=== PATIENT | male | born 1965 | race Hispanic/Latino ===

== ENCOUNTER 2019-12-08 10:19 | Inpatient (IN) | payer BC ==
[~2019-12-08] VITALS: Ht 167.6 cm; Wt 90.3 kg
[2019-12-08] MEDS ORDERED: SODIUM CHLORIDE 0.9% 1000ML 1,000 ML IV STA (10:33)
--- NOTE | 2019-12-08 10:40 | Emergency Department Note ---
History of Present Illnes History of Present Illness Chief Complaint: General Medicine Complaints History of Present Illness This is a 54 year old male . 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 Any updates have been documented here. Past Medical History Recent Fever: No Clinical Suspicion of Infectio: No New/Unexplained Change in Ment: No Other Medical History: HEART MURMUR Other Surgery: heart valve Social History Any Illegal Drug Use: No TB Exposure/Symptoms: No Physically hurt or threatened: No Review of Systems ROS Narrative Patient is a 54 year old male that presents with feeling of difficulty swallowing, has a sensation of something stuck in his chest. Went to [facility] ER yesterday and was referred to GI. Review of Systems Constitutional: Reports no symptoms EENTM: Reports no symptoms Cardiovascular: Reports no symptoms Respiratory: Reports no symptoms Gastrointestinal: Reports no symptoms Genitourinary: Reports no symptoms Musculoskeletal: Reports no symptoms Integumentary: Reports no symptoms Neurological: Reports no symptoms Psychological: Reports no symptoms Endocrine: Reports no symptoms Hematological/Lymphatic: Reports no symptoms Physical Exam Related Data Allergies: Coded Allergies: aspirin (Unverified Allergy, Unknown, 12/08/19) ibuprofen (Unverified Allergy, Unknown, 12/08/19) Triage Vital Signs Vital Signs Date Time Temp Pulse Resp B/P (MAP) Pulse Ox O2 Delivery O2 Flow Rate FiO2 12/08/19 10:22 99.0 85 18 122/84 100 Room Air Vital signs reviewed: Yes Physical Exam CONSTITUTIONAL Constitutional: Present well-developed, Present well-nourished HENT HENT: Present normocephalic, Present atraumatic, Present oropharynx clear/moist, Present nose normal HENT L/R: Present left ext ear normal, Present right ext ear normal EYES Eyes: Reports PERRL, Reports conjunctivae normal NECK Neck: Present ROM normal PULMONARY Pulmonary: Present effort normal, Present breath sounds normal CARDIOVASCULAR Cardiovascular: Present regular rhythm, Present heart sounds normal, Present capillary refill normal, Present normal rate GASTROINTESTINAL Abdominal: Present soft, Present nontender, Present bowel sounds normal GENITOURINARY Genitourinary: Present exam deferred SKIN Skin: Present warm, Present dry MUSCULOSKELETAL Musculoskeletal: Present ROM normal NEUROLOGICAL Neurological: Present alert, Present oriented x 3, Present no gross motor or sensory deficits PSYCHOLOGICAL Psychological: Present mood/affect normal, Present judgement normal Results Laboratory Lab results reviewed: Yes Imaging Imaging results reviewed: Yes Diagnostics Tests Diagnostic test(s) reviewed: Yes Procedures 12 Lead ECG Interpretation ECG Interpretation : ECG: ECG 1 Date: Dec 08, 2019 Time: 10:39 Prior ECG tracings: reviewed Rhythm: sinus rhythm Rate: normal BPM: 79 Assessment & Plan Medical Decision Making MDM Blood work, CXR, EKG Called Dr Arjun Dias who will take patient for EGD Reassessment Reassessment Patient in [facility], resting at this time. Consulted Dr Crowley and Dr Arjun Dias. Admiss ion orders placed Assessment & Plan Final Impression: (1) Esophageal foreign body (2) Dysphagia Depart Disposition: ADMITTED Last Vital Signs Date Time Temp Pulse Resp B/P (MAP) Pulse Ox O2 Delivery O2 Flow Rate FiO2 12/08/19 10:22 99.0 85 18 122/84 100 Room Air ASHLEY PENNINGTON Dec 08, 2019 10:36
[2019-12-08 10:50] LABS: EOSINOPHILS % 0.3 % (0.0-6.0); HEMATOCRIT 47.9 % (38.2-49.6); HEMOGLOBIN 15.6 g/dL (14.0-18.0); LYMPHOCYTES # (AUTO) 0.9 (1.0-3.2); LYMPHOCYTES % 28.2 % (18.0-39.1); MEAN CORPUSCULAR HEMOGLOBIN 27.3 pg (28-32); MEAN CORPUSCULAR HGB CONC 32.6 g/dL (31-35); MEAN CORPUSCULAR VOLUME 83.7 fL (81-99); MONOCYTES # (AUTO) 0.4 (0.2-0.8); NEUTROPHILS # (AUTO) 1.9 (2.1-6.9); NEUTROPHILS % 60.2 % (38.7-80.0); PLATELET COUNT 176 x10e3/uL (140-360); RED BLOOD COUNT 5.72 x10e6/uL (4.3-5.7); RED CELL DISTRIBUTION WIDTH 13.5 % (11.7-14.4)
[2019-12-08 11:10] LABS: ALANINE AMINOTRANSFERASE 27 IU/L (0-55); ALBUMIN 3.7 g/dL (3.5-5.0); ALBUMIN/GLOBULIN RATIO 1.2 (0.8-2.0); ALKALINE PHOSPHATASE 53 IU/L (40-150); ANION GAP 10.8 mmol/L (8-16); BLOOD UREA NITROGEN 12 mg/dL (7-26); BUN/CREATININE RATIO 16 (6-25); CARBON DIOXIDE 24 mmol/L (22-29); CHLORIDE 106 mmol/L (98-107); CREATINE KINASE 53 IU/L (30-200); CREATININE, SERUM 0.77 mg/dL (0.72-1.25); EST GLOMERULAR FILTRATION RATE > 60 ML/MIN (60-); GLUCOSE 114 mg/dL (74-118); MAGNESIUM 1.9 MG/DL (1.3-2.1); POTASSIUM 3.8 mmol/L (3.5-5.1); SODIUM 137 mmol/L (136-145)
[2019-12-08 11:14] LABS: INR 2.2; PROTHROMBIN TIME 25.9 seconds (11.9-14.5)
[2019-12-08 12:14] LABS: LIPASE 14 U/L (8-78)
[2019-12-08] MEDS ORDERED: MORPHINE SULFATE 2 MG/ML SYR 1ML IV PRN (12:50)
--- NOTE | 2019-12-08 12:54 | Diagnostic Imaging Report ---
EXAMINATION: CHEST SINGLE (PORTABLE) INDICATION: Chest pain COMPARISON: None FINDINGS: AP view TUBES and LINES: None. LUNGS: Lungs are well inflated. Lungs are clear. There is no evidence of pneumonia or pulmonary edema. PLEURA: No pleural effusion or pneumothorax. HEART AND MEDIASTINUM: The cardiomediastinal silhouette is at the upper limit of normal in size. BONES AND SOFT TISSUES: No acute osseous lesion. Mediastinal surgical changes are noted. UPPER ABDOMEN: No free air under the diaphragm. IMPRESSION: No acute thoracic radiographic abnormality. Signed by: Robin Heard MD on 12/08/2019 12:50 PM
[2019-12-08] MEDS ORDERED: ONDANSETRON HCL INJ 2MG/ML 2ML 2 MG/ML VIAL IV PRN (13:00)
--- NOTE | 2019-12-08 14:14 | NUR ---
COVID SWAB DONE AND SENT TO LAB
--- NOTE | 2019-12-08 16:15 | NUR ---
RECEIVED PATIENT FROM ER. PATIENT A/O X3, EVEN RESPIRATIONS ON RA. LUNG SOUNDS CLEAR. VS STABLE. TELEMETRY #2 SR. RIGHT FA 20 GAUGE IV WITH NS @ 125 CC/HR. SKIN INTACT. CALL LIGHT IN REACH WILL CONTINUE TO MONITOR PATIENT.
--- NOTE | 2019-12-08 16:40 | NUR ---
CONSULTS CALLED TO DR. BONILLA AND DR. RALPH SOTO.
[2019-12-08 16:49] VITALS: BP 136/88
[2019-12-08 16:58] VITALS: BP 136/88
[2019-12-08] MEDS ORDERED: FAMOTIDINE 20 MG/2 ML VIAL IV SCH (17:00)
[2019-12-08 17:01] VITALS: BP 136/88
[2019-12-08] MEDS: SODIUM CHLORIDE 0.9% 1000ML 1,000 ML IV SCH (18:25)
--- NOTE | 2019-12-08 19:25 | NUR ---
BEDSIDE SHIFT REPORT RECEIVED FROM DAY RN. PT IS ALERT AND ORIENTED X4. TELE ON. PT TAKING CLEAR LIQUIDS.PT REPORTS PAIN WHEN DRINK WATER. CONDITION STABLE.
[2019-12-08 20:00] VITALS: BP 123/74
[2019-12-08] MEDS ORDERED: PANTOPRAZOLE 40 MG 10ML VIAL IV STA (23:12)
[2019-12-08] MEDS: PANTOPRAZOL 40MG/SOD CHL 0.9% 50 ML IV SCH (23:59)
[2019-12-09] VITALS (9 sets, daily range): BP systolic 113–119; BP diastolic 61–84
[2019-12-09] MEDS: SODIUM CHLORIDE 0.9% 1000ML 1,000 ML IV SCH ×4 (01:10→18:33)
[2019-12-09 05:26] LABS: BASOPHILS % 0.3 % (0.0-1.0); EOSINOPHILS % 0.3 % (0.0-6.0); HEMATOCRIT 44.8 % (38.2-49.6); HEMOGLOBIN 14.5 g/dL (14.0-18.0); LYMPHOCYTES % 35.1 % (18.0-39.1); MEAN CORPUSCULAR HEMOGLOBIN 27.3 pg (28-32); MEAN CORPUSCULAR HGB CONC 32.4 g/dL (31-35); MEAN CORPUSCULAR VOLUME 84.2 fL (81-99); MONOCYTES # (AUTO) 0.5 (0.2-0.8); MONOCYTES % 15.6 % (4.4-11.3); NEUTROPHILS # (AUTO) 1.4 (2.1-6.9); PLATELET COUNT 152 x10e3/uL (140-360); RED BLOOD COUNT 5.32 x10e6/uL (4.3-5.7); RED CELL DISTRIBUTION WIDTH 13.5 % (11.7-14.4)
[2019-12-09] MEDS: PANTOPRAZOL 40MG/SOD CHL 0.9% 50 ML IV SCH ×5 (05:36→20:04)
[2019-12-09 05:41] LABS: INR 2.28; PROTHROMBIN TIME 26.6 seconds (11.9-14.5)
[2019-12-09 05:55] LABS: ALANINE AMINOTRANSFERASE 25 IU/L (0-55); ALBUMIN 3.3 g/dL (3.5-5.0); ALBUMIN/GLOBULIN RATIO 1.1 (0.8-2.0); ALKALINE PHOSPHATASE 49 IU/L (40-150); ANION GAP 11.4 mmol/L (8-16); BLOOD UREA NITROGEN 9 mg/dL (7-26); BUN/CREATININE RATIO 12 (6-25); CALCIUM 8.6 mg/dL (8.4-10.2); CARBON DIOXIDE 24 mmol/L (22-29); CHLORIDE 107 mmol/L (98-107); CREATININE, SERUM 0.74 mg/dL (0.72-1.25); EST GLOMERULAR FILTRATION RATE > 60 ML/MIN (60-); GLUCOSE 84 mg/dL (74-118); POTASSIUM 4.4 mmol/L (3.5-5.1); SODIUM 138 mmol/L (136-145)
--- NOTE | 2019-12-09 09:51 | History and Physical ---
REASON FOR ADMISSION: The patient is coming in here for dysphagia. HISTORY OF PRESENT ILLNESS: Mr. Arturo Valles with a history of aortic valve replacement, history of coronary artery disease, on warfarin and metoprolol, was in usual state of health until about one day prior to admission. The patient was working, did not feel hungry, but he tried to force himself to eat. Did have some upper respiratory symptoms of cough and congestion. The patient did not think much of it, but as he was trying to swallow food, the patient felt the obstruction in the mid esophageal area and the midsternal area, and the patient was admitted to the hospital for dysphagia and abdominal pain, and chest pain. PAST MEDICAL HISTORY: 1. History of aortic stenosis, status post aortic valve replacement, mechanical heart. 2. History of coronary artery disease and advanced stenting in one of the arteries, unknown artery. MEDICATIONS: He takes at home: 1. Metoprolol 50 mg once a day extended release. 2. Warfarin, dose unknown. FAMILY HISTORY: History of hepatitis and cancer of the digestive system in the father. Otherwise, noncontributory. SOCIAL HISTORY: No EtOH. No IV drug abuse. No history of smoking either. ALLERGIES: ALLERGIC TO ASPIRIN AND IBUPROFEN. SURGICAL HISTORY: As mentioned above, mechanical valve replacement, open-heart surgery. REVIEW OF SYSTEMS: Positive for chest pain. No nausea. Positive for dysphagia. No diarrhea. No constipation. No rectal bleeding. No hematochezia. No hematemesis. No history of any sudden weight loss noted either. No diplopia. No blurry vision. No history of neurological symptoms. PHYSICAL EXAMINATION: VITAL SIGNS: Temperature is 97.5, pulse of 80, respirations of 20, blood pressure is 118/68, pulse oximetry of 100%. HEENT: Normocephalic, atraumatic. Pupils are reactive. CVS: S1 and S2. Mechanical click present. LUNGS: Good air entry into all lung bases. ABDOMEN: Soft, nontender, nondistended. EXTREMITIES: No clubbing, no cyanosis and/or no edema. LABORATORY VALUES: White count is 3.19, hemoglobin of 15.6, hematocrit of 47.9. Chemistry shows sodium 137, potassium 3.8, BUN of 12, creatinine 0.77. ALT, AST, alkaline phosphatase normal. Lipase is 14. Coags; the patient's PT, INR 26.6 and 2.28. Serology; coronavirus is pending. IMAGING STUDIES: Chest x-ray shows no acute thoracic abnormalities. ASSESSMENT: 1. Mr. Arturo Valles with dysphagia of unknown origin. 2. Abdominal pain. 3. History of aortic valve replacement with Coumadin on board. 4. History of coronary artery disease. PLAN: Continue with telemetry monitoring. The patient is off the Coumadin. We will need to scope the patient. Dr. Kd Beverly is on board. Further recommendation per clinical course and also after EGD has been done. The patient can be discharged home depending on the findings of EGD. Further recommendation per clinical course. MD BRIAN Bennett/MODL /[id number]
--- NOTE | 2019-12-09 19:45 | NUR ---
RECEIVED REPORT FROM PREVIOUS NURSE. CALL LIGHT WITHIN REACH. PATIENT IN BED.
[2019-12-10] VITALS (8 sets, daily range): BP systolic 105–158; BP diastolic 60–86
--- NOTE | 2019-12-10 00:51 | NUR ---
CALLED AND TALKED TO DR. BONILLA ABOUT PATIENT COMPLAINING OF BACK PAIN. DR. BONILLA ORDERED MORPHINE 2 MG Q6H
[2019-12-10] MEDS ORDERED: MORPHINE SULFATE 2 MG/ML SYR 1ML IV PRN (00:55)
[2019-12-10] MEDS: SODIUM CHLORIDE 0.9% 1000ML 1,000 ML IV SCH ×3 (01:13→18:18)
[2019-12-10] MEDS: PANTOPRAZOL 40MG/SOD CHL 0.9% 50 ML IV SCH ×5 (02:25→20:52)
[2019-12-10 05:48] LABS: INR 2.19; PROTHROMBIN TIME 25.8 seconds (11.9-14.5)
--- NOTE | 2019-12-10 07:00 | NUR ---
BEDSIDE SHIFT REPORT RECEIVED FORM THE CLINICAL MICROBIOLOGIST RN. PT DENIES NEEDS AT THIS TIME.
--- NOTE | 2019-12-10 07:14 | NUR ---
GAVE BEDSIDE SHIFT REPORT TO ONCOMING NURSE. CALL LIGHT WITHIN REACH. PATIENT IN BED. HOURLY ROUNDING PERFORMED
--- NOTE | 2019-12-10 08:00 | NUR ---
PT COVID TEST POSITIVE. PT IS TRANSFERRING TO RM 185. TRANSFER REPORT GIVEN TO THE RN. DR. BONILLA NOTIFIED.
--- NOTE | 2019-12-10 09:00 | NUR ---
DR. VALENTIN NOTIFIED ABOUT NEW CONSULT AND DR. BELLO NOTIFIED ABOUT PT COVID TEST RESULT PER DR. BONILLA
--- NOTE | 2019-12-10 09:05 | NUR ---
PT TRANSFERRED TO 185 SAFELY. PT DENIED FURTHER NEEDS.
--- NOTE | 2019-12-10 09:15 | NUR ---
Pt received from [facility] at this time. Pt is aox4 and able to verbalize needs. Denies any pain at this time. Denies SOB. Breaths are even and unlabored on room air.
--- NOTE | 2019-12-10 16:32 | NUR ---
PAST MEDICAL HISTORY: 1. History of aortic stenosis, status post aortic valve replacement, mechanical heart. 2. History of coronary artery disease and advanced stenting in one of the arteries, unknown artery. MEDICATIONS: He takes at home: 1. Metoprolol 50 mg once a day extended release. 2. Warfarin, dose unknown. FAMILY HISTORY: History of hepatitis and cancer of the digestive system in the father. Otherwise, noncontributory. SOCIAL HISTORY: No EtOH. No IV drug abuse. No history of smoking either. ALLERGIES: ALLERGIC TO ASPIRIN AND IBUPROFEN. SURGICAL HISTORY: As mentioned above, mechanical valve replacement, open-heart surgery. REVIEW OF SYSTEMS: Positive for chest pain. No nausea. Positive for dysphagia. No diarrhea. No constipation. No rectal bleeding. No hematochezia. No hematemesis. No history of any sudden weight loss noted either. No diplopia. No blurry vision. No history of neurological symptoms. [id number]
--- NOTE | 2019-12-10 19:11 | Consultation ---
DATE OF CONSULTATION: REASON FOR CONSULTATION: COVID-19. HISTORY OF PRESENT ILLNESS: This patient is a 54-year-old who comes in with difficulty swallowing, dysphagia. The patient has history of aortic valve replacement, coronary artery disease. He was on Coumadin, metoprolol. The patient denies any fever, chills, shortness of breath, or cough, but he is having difficulty swallowing, came here to be admitted. His COVID-19 came back positive. PAST MEDICAL HISTORY: Aortic valve replacement, coronary artery disease. ALLERGIES: NKA. SOCIAL HISTORY: There is no smoking, drug abuse, or alcohol abuse. FAMILY HISTORY: Otherwise unremarkable. PHYSICAL EXAMINATION: GENERAL: He is currently alert, oriented. Does not seem to be in acute distress. VITAL SIGNS: Stable. Currently afebrile. HEENT: Not icteric. NECK: Supple. CHEST: Clear. HEART: S1, S2. ABDOMEN: Soft. Bowel sounds present. EXTREMITIES: No edema. SKIN: No rash. LABORATORY DATA: His white count is 3.19, hemoglobin of 15. His COVID-19 was positive. His sodium 137, potassium 3.8, creatinine 0.77. MEDICATIONS: The patient currently on pantoprazole and Zofran. IMPRESSION: 1. COVID-19. Asymptomatic. No new infiltrate. He will continue on droplet isolation. The patient is not infectious 10 days post diagnosis. He is telling me he never had symptoms. There were some positive people at work, but he never had any symptoms. 2. Leukopenia, reassess. 3. Difficulty swallowing. May need EGD. PLAN: From Infectious Disease point of view, the patient is clinically stable. I answered all his questions. We will follow. MD TAQUERIA Wasserman/MODL /[id number]
--- NOTE | 2019-12-10 19:28 | NUR ---
Patient received sitting up in bed. AAO x 4. Patient had no complaints of pain. Respirations even and non-labored. IVF infusing at 125 cc/hr and Protonix drip at 10 cc/hr. Safety measures in place. Patient instructed to call for assistance when needed. Call light within reach.
[2019-12-11] VITALS (8 sets, daily range): BP systolic 120–138; BP diastolic 70–92
[2019-12-11] MEDS: SODIUM CHLORIDE 0.9% 1000ML 1,000 ML IV SCH ×2 (02:11→12:05)
[2019-12-11] MEDS: PANTOPRAZOL 40MG/SOD CHL 0.9% 50 ML IV SCH ×4 (02:11→18:31)
--- NOTE | 2019-12-11 02:13 | NUR ---
Dr. Arjun Beverly here to see patient. New order received for EGD procedure and to keep patient NPO .
--- NOTE | 2019-12-11 03:16 | NUR ---
Patient informed of upcoming diagnostic procedure----EGD and "NPO" status. Patient verbalized understanding. Disclosure and Consent form voluntarily signed by patient.
[2019-12-11 05:08] LABS: INR 1.86; PROTHROMBIN TIME 22.6 seconds (11.9-14.5)
[2019-12-11 05:47] LABS: BASOPHILS % 0.3 % (0.0-1.0); EOSINOPHILS % 1.3 % (0.0-6.0); HEMATOCRIT 45.2 % (38.2-49.6); LYMPHOCYTES % 32.2 % (18.0-39.1); MEAN CORPUSCULAR HEMOGLOBIN 27.6 pg (28-32); MEAN CORPUSCULAR HGB CONC 33.2 g/dL (31-35); MEAN CORPUSCULAR VOLUME 83.2 fL (81-99); MONOCYTES # (AUTO) 0.3 (0.2-0.8); MONOCYTES % 10.4 % (4.4-11.3); NEUTROPHILS # (AUTO) 1.7 (2.1-6.9); NEUTROPHILS % 55.5 % (38.7-80.0); PLATELET COUNT 160 x10e3/uL (140-360); RED BLOOD COUNT 5.43 x10e6/uL (4.3-5.7); RED CELL DISTRIBUTION WIDTH 13.5 % (11.7-14.4)
[2019-12-11 06:30] LABS: ALANINE AMINOTRANSFERASE 27 IU/L (0-55); ALBUMIN 3.3 g/dL (3.5-5.0); ALBUMIN/GLOBULIN RATIO 1.1 (0.8-2.0); ALKALINE PHOSPHATASE 58 IU/L (40-150); ANION GAP 11.9 mmol/L (8-16); BLOOD UREA NITROGEN 7 mg/dL (7-26); BUN/CREATININE RATIO 11 (6-25); CALCIUM 8.7 mg/dL (8.4-10.2); CARBON DIOXIDE 22 mmol/L (22-29); CHLORIDE 109 mmol/L (98-107); CREATININE, SERUM 0.63 mg/dL (0.72-1.25); EST GLOMERULAR FILTRATION RATE > 60 ML/MIN (60-); GLUCOSE 76 mg/dL (74-118); MAGNESIUM 1.8 MG/DL (1.3-2.1); POTASSIUM 3.9 mmol/L (3.5-5.1); SODIUM 139 mmol/L (136-145)
--- NOTE | 2019-12-11 08:00 | NUR ---
Pt received in bed with eyes closed. Easily wakes with verbal stimuli. Pt is NPO at this time for planned procedure. Denies any pain at this time. Breaths even and unlabored on room air. Denies SOB.
--- NOTE | 2019-12-11 15:52 | NUR ---
Nutrition Screen Note RD Recommendation for Physician: -Recommend advancing diet when medically appropriate Plan of Care: RD following, monitoring for tolerance and adequacy Nutrition reason for involvement: diagnosis - dysphagia Primary Diagnose(s): dysphagia PMH: aortic stenosis, CAD Ht: 66 in Wt: 197 lb BMI: 31.8 kg/m2 IBW:[address] Assessment: (12/11/19) Chart reviewed. Labs and meds reviewed. Pt is a 54 year old male admitted with dysphagia. Pt is COVID-19+. Unable to enter room due to isolation precautions. Attempted to call pt over the phone, but he did not answer. Pt is currently NPO for an EGD per chart. Pt was previously on a liquid diet with 50-100% PO intake from 12/08-12/09. Will continue to monitor. Current Diet: NPO Malnutrition Evaluation (12/11/19) Unable to assess due to isolation precautions. Will re-evaluate at follow-up as appropriate. Diet Education Needs Assessment: Diet education not indicated at this time, pt is NPO Nutrition Care Level: low Signed: Amanda Wilson, RD, LD
--- NOTE | 2019-12-11 16:30 | NUR ---
Pt being transferred to OR at this time for scheduled procedure. Pt is aox4 and able to verbalize needs Denies any pain at this time. Breaths even and unlabored.
--- NOTE | 2019-12-11 18:00 | NUR ---
Pt received back from OR at 1730. Pt is axo4 and able to verbalize needs. Dr. Beverly has started pt on carafate. He would like for patient to stay overnight until he tolerates solid food prior to discharge. He will needs scripts for carafate when he discharges. Received orders from Dr. Aguirre to restart pt on coumadin 5mg tonight.
--- NOTE | 2019-12-11 18:30 | Progress Note ---
DATE: SUBJECTIVE: Mr. Valles is doing well. There are no new complaints. He is going to have an EGD today. There is no fever, no chills. REVIEW OF SYSTEMS: Otherwise unremarkable. PHYSICAL EXAMINATION: GENERAL: He is currently alert, oriented. VITAL SIGNS: Stable, afebrile. HEENT: He is not icteric. NECK: Supple. CHEST: Clear. HEART: S1, S2. No murmurs. ABDOMEN: Soft. IMPRESSION AND PLAN: 1. Difficulty with swallowing for esophagogastroduodenoscopy. 2. Coronavirus disease-19. The patient is asymptomatic. The patient was diagnosed with coronavirus disease-19 by PCR. Discussed with the patient to finish 10 days of home quarantine. After that, there is no need to repeat the PCR. The patient can be discharged home from Infectious Disease. Stable otherwise. MD TAQUERIA Wasserman/REAGAN /[id number]
[2019-12-11] MEDS: WARFARIN SOD 5 MG TAB PO SCH (18:31)
--- NOTE | 2019-12-11 18:35 | Operative Report ---
DATE OF PROCEDURE: 12/11/2019 SURGEON: Kd Beverly MD PROCEDURE: EGD with biopsies. INDICATIONS FOR EGD: Odynophagia. MEDICATIONS: The patient was done under MAC, please see anesthesiologist's note. PROCEDURE IN DETAIL: With the patient in the left lateral decubitus position, a flexible fiberoptic Olympus gastroscope was introduced into the esophagus under direct visualization without any difficulty. Approximately 5 mm ulcer was noted in the mid esophagus with heaped up margins without active bleeding or stigmata of recent hemorrhage. The scope was then advanced with ease into the stomach. Mucosa overlying the antrum and the body revealed some patchy erythema and [id number] edema, and biopsies were obtained and sent to stain for H. pylori. Pylorus was of normal contour and shape, was intubated with ease and the scope was advanced all the way to the second portion of the duodenum. The scope was then withdrawn slowly, mucosa overlying the proximal second portion and the duodenal bulb appeared to be within normal limits. The scope was then withdrawn back into the stomach and retroflexed, mucosa overlying the fundus and the cardia appeared to be within normal limits. The scope was then straightened out, it was subsequently withdrawn, and the patient tolerated the procedure well. IMPRESSION: 1. Esophageal ulcer, mid esophagus, approximately 5 mm in size with heaped up margins without active bleeding or stigmata of recent hemorrhage. 2. Gastritis, biopsied, biopsies sent to stain for Helicobacter pylori. PLAN: Follow up histology. Add Carafate 1 g p.o. before meals t.i.d. and at bedtime. Start GI soft diet. Kd Beverly MD [facility]/REAGAN /[id number] cc: Jonny Crowley MD
--- NOTE | 2019-12-11 19:28 | NUR ---
Patient received sitting up in bed. AAO x 4. No complaints of pain. No signs of respiratory distress. Fall precautions implemented. IVF infusing at 125 cc/hr and Protonix at 10 cc/hr. Patient instructed to call for assistance when needed. Call light within reach.
[2019-12-11] MEDS ORDERED: PROPOFOL IV EMULSION 10 MG/ML 20 ML VIAL ONE (21:10)
[2019-12-11] MEDS: SUCRALFATE 1 GM/10 ML SUSP PO SCH (21:31)
[2019-12-12] VITALS (10 sets, daily range): BP systolic 116–129; BP diastolic 64–82
[2019-12-12] MEDS: PANTOPRAZOL 40MG/SOD CHL 0.9% 50 ML IV SCH ×6 (01:04→22:29)
[2019-12-12] MEDS: SODIUM CHLORIDE 0.9% 1000ML 1,000 ML IV SCH ×4 (01:04→17:47)
[2019-12-12] MEDS: SUCRALFATE 1 GM/10 ML SUSP PO SCH ×4 (07:30→21:34)
[2019-12-12] MEDS: WARFARIN SOD 5 MG TAB PO SCH (16:24)
--- NOTE | 2019-12-12 17:25 | Progress Note ---
DATE: SUBJECTIVE: Mr. Valles is doing well. There are no new complaints. PHYSICAL EXAMINATION: GENERAL: He is currently alert and oriented. VITAL SIGNS: Stable, afebrile. HEENT: He is not icteric. NECK: Supple. CHEST: Clear. HEART: S1 and S2. ABDOMEN: Soft. IMPRESSION: COVID-19. The patient is stable. He will be discharged home. There is hold up because of his low Coumadin and INR. From Infectious Disease point of view, he is doing good. MD TAQUERIA Wasserman/MODEugene /[id number]
--- NOTE | 2019-12-12 19:15 | NUR ---
BEDSIDE SHIFT REPORT RECEIVED FROM DAY RN. PT IS ALERT AND ORIENTED X3. TELE ON. RESPIRATIONS ARE EVEN AND UNLABORED. LUNGS CLEAR. NO COUGH. PT DENIES PAIN. PT REPORT TOLERATING DIET WELL. PT UP TO BATHROOM- VOIDING WITHOUT DIFFICULTY. 20 G PIV IN LEFT WRIST NS INFUSING AT 100 ML/HR AND PROTONIX DRIP AT 10 ML/HR. CALL LIGHT WITHIN REACH. BED LOCKED AND IN LOW POSITION.
[2019-12-13] VITALS (10 sets, daily range): BP systolic 120–130; BP diastolic 69–83
[2019-12-13] MEDS: SODIUM CHLORIDE 0.9% 1000ML 1,000 ML IV SCH ×3 (02:33→20:07)
[2019-12-13] MEDS: PANTOPRAZOL 40MG/SOD CHL 0.9% 50 ML IV SCH ×4 (03:15→20:06)
[2019-12-13 06:01] LABS: BASOPHILS % 0.3 % (0.0-1.0); EOSINOPHILS # (AUTO) 0.1 (0.0-0.4); HEMATOCRIT 42.2 % (38.2-49.6); HEMOGLOBIN 14.2 g/dL (14.0-18.0); LYMPHOCYTES # (AUTO) 1.1 (1.0-3.2); LYMPHOCYTES % 33.2 % (18.0-39.1); MEAN CORPUSCULAR HEMOGLOBIN 28.6 pg (28-32); MEAN CORPUSCULAR HGB CONC 33.6 g/dL (31-35); MEAN CORPUSCULAR VOLUME 84.9 fL (81-99); MONOCYTES # (AUTO) 0.4 (0.2-0.8); NEUTROPHILS # (AUTO) 1.8 (2.1-6.9); NEUTROPHILS % 51.9 % (38.7-80.0); PLATELET COUNT 181 x10e3/uL (140-360); RED BLOOD COUNT 4.97 x10e6/uL (4.3-5.7); RED CELL DISTRIBUTION WIDTH 13.2 % (11.7-14.4)
[2019-12-13 06:09] LABS: INR 2.08; PROTHROMBIN TIME 24.7 seconds (11.9-14.5)
[2019-12-13 06:16] LABS: ALANINE AMINOTRANSFERASE 23 IU/L (0-55); ALBUMIN 2.9 g/dL (3.5-5.0); ALKALINE PHOSPHATASE 57 IU/L (40-150); ANION GAP 10.5 mmol/L (8-16); BLOOD UREA NITROGEN 6 mg/dL (7-26); BUN/CREATININE RATIO 9 (6-25); CALCIUM 8.4 mg/dL (8.4-10.2); CARBON DIOXIDE 22 mmol/L (22-29); CHLORIDE 110 mmol/L (98-107); CREATININE, SERUM 0.64 mg/dL (0.72-1.25); EST GLOMERULAR FILTRATION RATE > 60 ML/MIN (60-); GLUCOSE 95 mg/dL (74-118); POTASSIUM 3.5 mmol/L (3.5-5.1); SODIUM 139 mmol/L (136-145)
[2019-12-13] MEDS: SUCRALFATE 1 GM/10 ML SUSP PO SCH ×5 (07:57→21:53)
--- NOTE | 2019-12-13 15:18 | Progress Note ---
DATE: SUBJECTIVE: Mr. Valles remains in intensive care unit, admitting in medical floor, is doing good, but has no new complaint. PHYSICAL EXAMINATION: GENERAL: He is currently alert, comfortable. Afebrile HEENT: He is not icteric. NECK: Supple. CHEST: Clear. COR: S2, S3. ABDOMEN: Soft. IMPRESSION AND PLAN: The patient with coronavirus disease-19, can be discharged home. Home quarantine, total of 10 days since diagnosis. No further treatment. MD TAQUERIA Wasserman/MODL /[id number]
[2019-12-13] MEDS: WARFARIN SOD 5 MG TAB PO SCH (16:30)
--- NOTE | 2019-12-13 19:25 | NUR ---
BEDSIDE SHIFT REPORT RECEIVED FROM DAY RN. PT IS ALERT AND ORINETED X3. RESPIRATIONS ARE EVEN AND UNLABORED. INTERMITENT DRY COUGH. TELE ON. PT VOIDING PER BATHROOM.LEFT 22 G IV PATENT WITH HEALTHY SITE. NS INFUSNG AT 100 ML/HR. PT CONTINUES PROTONIX DRIP ORDERED BY PHYSICIAN. PT DENIES PAIN.CALL LIGHT WITHIN REACH.
[2019-12-13] MEDS ORDERED: SUCRALFATE 1 GM TAB PO ONE (21:23)
[2019-12-14] VITALS: BP 131/91
[2019-12-14] MEDS: SODIUM CHLORIDE 0.9% 1000ML 1,000 ML IV SCH (02:33)
[2019-12-14 04:00] VITALS: BP 127/86
[2019-12-14 08:00] VITALS: BP 130/81
[2019-12-14 08:22] VITALS: BP 130/81
[2019-12-14] MEDS ORDERED: PANTOPRAZOLE 40 MG 10ML VIAL IV SCH (09:00)
[2019-12-14] MEDS ORDERED: CARAFATE1 GM/10 ML PO (09:20)
[2019-12-14] MEDS ORDERED: PANTOPRAZOLE SO40 MG PO (09:20)
--- NOTE | 2019-12-14 10:50 | NUR ---
Patient discharged home, prescription given, IV canula removed with tip intact, No SS of infiltration, Patient aware about f/up anointments, Discharge instruction given. transported via wheelchair to [facility]
== END 2019-12-14 11:36 | disposition home or self-care (01) | DRG 380 ==
LOC: ER 10:34 → ERHOLD 12:52 → MED/SURG 16:14 → IMCU 12-10 09:05 → OBSVTOIN 12-10 15:01
PROVIDERS: ADMIT Family Medicine; ATTEND Family Medicine
PROC: 0DB78ZX Excision of Stomach, Pylorus, Via Natural or Artificial Opening Endoscopic, Diagnostic (ICD-10-PCS; principal; 2019-12-11 16:30)
DX: K22.10 Ulcer of esophagus without bleeding (principal); U07.1 COVID-19; R13.10 Dysphagia, unspecified; Z79.01 Long term (current) use of anticoagulants; Z95.2 Presence of prosthetic heart valve; I25.10 Atherosclerotic heart disease of native coronary artery without angina pectoris; Z95.5 Presence of coronary angioplasty implant and graft; Z88.6 Allergy status to analgesic agent; D72.819 Decreased white blood cell count, unspecified; K29.70 Gastritis, unspecified, without bleeding
CPT/HCPCS: 36415; 43239; 71045; 80053; 82550; 82553; 83690; 83735; 84484; 85025; 85610; 88305; 88312; 93005; 96361; 99284; G0378; J2270; J2405; J7030; U0002

== ENCOUNTER → 2020-01-29 | Day surgery (SDC) | payer BC ==
[2020-01-26 15:55] LABS: BASOPHILS # (AUTO) 0.1 (0.0-0.1); BASOPHILS % 0.7 % (0.0-1.0); EOSINOPHILS # (AUTO) 0.1 (0.0-0.4); EOSINOPHILS % 1.7 % (0.0-6.0); HEMATOCRIT 44.5 % (38.2-49.6); HEMOGLOBIN 14.6 g/dL (14.0-18.0); LYMPHOCYTES # (AUTO) 2.1 (1.0-3.2); LYMPHOCYTES % 30.8 % (18.0-39.1); MEAN CORPUSCULAR HEMOGLOBIN 27.6 pg (28-32); MEAN CORPUSCULAR HGB CONC 32.8 g/dL (31-35); MEAN CORPUSCULAR VOLUME 84.1 fL (81-99); MONOCYTES # (AUTO) 0.6 (0.2-0.8); MONOCYTES % 8.9 % (4.4-11.3); NEUTROPHILS % 57.2 % (38.7-80.0); PLATELET COUNT 204 x10e3/uL (140-360); RED BLOOD COUNT 5.29 x10e6/uL (4.3-5.7); RED CELL DISTRIBUTION WIDTH 15.8 % (11.7-14.4)
--- NOTE | 2020-01-28 13:10 | NUR ---
PER DR. ISIDORO DECKER TO PROCEED WITH OUT CARDIAC RECORDS/CLEARANCE. PLEASE LET PT KNOW TO F/U WITH ATOMIZER ASSEMBLER ON WHEN TO RESTART COUMADIN. SPOKE WITH GUME WITH DR. CHARLES ARCE. SHE VERBALIZED UNDERSTANDING AND TO CALL PT.
[~2020-01-29] MED LIST: CARAFATE1 GM/10 ML PO; FENTANYL CITRATE/PF 100MCG/2 ML INJ ONE; HYOSCYAMINE 0.125 MG TAB ONE; KETAMINE HCL INJ 50 MG/ML 10 ML VIAL ONE; LIDOCAINE HCL 2% LOCAL INJ 5 ML SDV VIAL INJ ONE; METOPROLOL SUCC50 MG PO; MIDAZOLAM HCL 2 MG/2 ML VIAL ONE; PANTOPRAZOLE SO40 MG PO; PROPOFOL IV EMULSION 10 MG/ML 20 ML VIAL ONE; WARFARIN SODIU2.5 MG PO
--- NOTE | 2020-01-29 07:15 | NUR ---
SPIRITUAL CARE - Pre-Surgery Assessment: Pt in bed. Pt's at bedside. Pt reported supportive attention from family and friends. Intervention: Recruitment Intern provided pastoral presence, hospitality, sympathetic listening, and prayer. Acquainted pt with availability of freight coordinator while hospitalized. Outcome: Pt expressed appreciation for visit. No need for follow up indicated at this time. JOSE Blanca Spiritual Care Department O: [phone]
[2020-01-29 07:31] LABS: INR 0.89; PROTHROMBIN TIME 12.5 seconds (11.9-14.5)
[2020-01-29 07:32] LABS: PARTIAL THROMBOPLASTIN TIME 28.3 seconds (23.8-35.5)
[2020-01-29 09:30] VITALS: BP 134/86
--- NOTE | 2020-01-29 10:05 | Operative Report ---
DATE OF PROCEDURE: 01/29/2020 SURGEON: Kd Beverly MD PROCEDURE: EGD with biopsies and colonoscopy with polypectomy. INDICATIONS FOR EGD: History esophageal ulcer. INDICATIONS FOR COLONOSCOPY: Colorectal cancer screening. MEDICATIONS: The patient was done under MAC, please see anesthesiologist's note. PROCEDURE IN DETAIL: With the patient in the left lateral decubitus position, the flexible fiberoptic Olympus gastroscope was introduced into the esophagus under direct visualization without any difficulty. There was some patchy erythema noted in distal esophagus. The scope was introduced under direct visualization into the esophagus. The previously described esophageal ulcer has healed and the esophagus otherwise is within normal limits. The scope was then advanced with ease into the stomach. Mucosa overlying the antrum and the body revealed some patchy erythema and qcwk-oa-djtrocwq edema, and biopsies were obtained and sent to stain for H. pylori. Pylorus was of normal contour and shape, was intubated with ease and the scope was advanced all the way to the second portion of the duodenum. The scope was then withdrawn slowly. Mucosa overlying the proximal second portion and the duodenal bulb appeared to be within normal limits. The scope was then withdrawn back into the stomach and retroflexed mucosa overlying the fundus and cardia appeared to be within normal limits. The scope was then straightened out. It was subsequently withdrawn. The patient tolerated the procedure well. IMPRESSION: 1. Normal esophagus. Previously described esophageal ulcer well healed. 2. Gastritis, biopsied. PLAN: Follow up histology. Continue Protonix 40 mg one p.o. q.a.m. before meals. The patient was then turned around after adequate lubrication of the anal canal, a flexible fiberoptic Olympus colonoscope was inserted into the rectum and advanced all the way to the cecum. Gnwzvtth-[id number]-rypxa amount of retained scattered fecal material was noted in the colon. The scope was then withdrawn slowly. Mucosa overlying the cecum appeared to be within normal limits. Whatever was visualized, the mucosa overlying the ascending colon appeared to be within normal limits. An approximately 1 cm and 2.5 cm sessile polyps were noted in the distal transverse colon and those were removed per piecemeal snare polypectomy. Site was also tattooed. Whatever was visualized, the mucosa overlying the descending sigmoid and rectum grossly appeared to be within normal limits. The scope was then retroflexed into the distal rectum and small internal hemorrhoids were noted, none of which was actively bleeding. The scope was then straightened out. It was subsequently withdrawn. The patient tolerated the procedure well. Of note, diverticular disease was noted to be scattered pretty much throughout the colon. IMPRESSION: 1. Suboptimal prep. 2. Pandiverticulosis. 3. Distal transverse polyps x2, approximately 1 cm and 2.5 cm in size, removed per piecemeal electrocautery and the site was tattooed. 4. Internal hemorrhoids, none actively bleeding. PLAN: Followup histology. The patient will need a followup colonoscopy later this year after a better prep to rule out synchronous colorectal neoplasm as well as to reinspect the polypectomy site and remove any residual polypoid tissue. Kd Beverly MD [facility]/MODL /[id number] cc: Jonny Crowley MD
== END | disposition home or self-care (01) ==
LOC: OR 06:18
PROVIDERS: ATTEND Internal Medicine Gastroenterology
DX: Z12.11 Encounter for screening for malignant neoplasm of colon (principal); D12.3 Benign neoplasm of transverse colon; K29.50 Unspecified chronic gastritis without bleeding; K22.10 Ulcer of esophagus without bleeding; K31.89 Other diseases of stomach and duodenum; K21.9 Gastro-esophageal reflux disease without esophagitis; K57.30 Diverticulosis of large intestine without perforation or abscess without bleeding; K64.8 Other hemorrhoids; R06.83 Snoring; I25.810 Atherosclerosis of coronary artery bypass graft(s) without angina pectoris; I10 Essential (primary) hypertension; F41.9 Anxiety disorder, unspecified; Z88.6 Allergy status to analgesic agent; Z88.8 Allergy status to other drugs, medicaments and biological substances; Z01.810 Encounter for preprocedural cardiovascular examination; Z01.812 Encounter for preprocedural laboratory examination; Z11.59 Encounter for screening for other viral diseases; Z79.01 Long term (current) use of anticoagulants; Z95.1 Presence of aortocoronary bypass graft
CPT/HCPCS: 36415 ×2; 43239; 45381; 45385; 85025; 85610; 85730; 93005; J2001; J2250; J2704; J3010; U0002; 45378; 45384

== ENCOUNTER → 2020-02-26 | Day surgery (SDC) | payer BC, OTHER ==
[~2020-02-26] MED LIST changes: +GLUCAGON FOR INJ 1 MG VIAL ONE; -KETAMINE HCL INJ 50 MG/ML 10 ML VIAL ONE; -LIDOCAINE HCL 2% LOCAL INJ 5 ML SDV VIAL INJ ONE
[2020-02-26 11:27] LABS: INR 1.08; PROTHROMBIN TIME 14.6 seconds (11.9-14.5)
[2020-02-26 11:28] LABS: PARTIAL THROMBOPLASTIN TIME 27.9 seconds (23.8-35.5)
[2020-02-26 14:35] VITALS: BP 113/81
== END | disposition home or self-care (01) ==
LOC: OR 09:20
PROVIDERS: ATTEND Internal Medicine Gastroenterology
DX: Z12.11 Encounter for screening for malignant neoplasm of colon (principal); K63.5 Polyp of colon; K57.30 Diverticulosis of large intestine without perforation or abscess without bleeding; K64.8 Other hemorrhoids; K29.70 Gastritis, unspecified, without bleeding; I25.10 Atherosclerotic heart disease of native coronary artery without angina pectoris; I10 Essential (primary) hypertension; Z88.6 Allergy status to analgesic agent; Z88.8 Allergy status to other drugs, medicaments and biological substances; Z01.810 Encounter for preprocedural cardiovascular examination; Z01.812 Encounter for preprocedural laboratory examination; Z11.59 Encounter for screening for other viral diseases; Z79.01 Long term (current) use of anticoagulants; Z68.33 Body mass index [BMI] 33.0-33.9, adult; Z95.5 Presence of coronary angioplasty implant and graft
CPT/HCPCS: 36415; 45384; 85610; 85730; J1610; J2250; J2704; J3010; U0002; 45378

== ENCOUNTER 2021-03-20 09:59 | Inpatient (IN) | payer BC ==
[2021-03-20] VITALS (13 sets, daily range): BP systolic 101–148; BP diastolic 71–113
[~2021-03-20] VITALS: Ht 167.6 cm; Wt 93.5 kg
[~2021-03-20 09:59] MED LIST changes: -FENTANYL CITRATE/PF 100MCG/2 ML INJ ONE; -GLUCAGON FOR INJ 1 MG VIAL ONE; -HYOSCYAMINE 0.125 MG TAB ONE; -MIDAZOLAM HCL 2 MG/2 ML VIAL ONE; -PROPOFOL IV EMULSION 10 MG/ML 20 ML VIAL ONE
[2021-03-20] MEDS ORDERED: SODIUM CHLORIDE 0.9% 500ML 500 ML IV ONE ×2 (10:30→12:15)
[2021-03-20 10:31] LABS: BASOPHILS # (AUTO) 0.1 (0.0-0.1); BASOPHILS % 0.8 % (0.0-1.0); EOSINOPHILS % 0.5 % (0.0-6.0); HEMATOCRIT 49.6 % (38.2-49.6); LYMPHOCYTES # (AUTO) 1.4 (1.0-3.2); LYMPHOCYTES % 17.7 % (18.0-39.1); MEAN CORPUSCULAR HEMOGLOBIN 28.9 pg (28-32); MEAN CORPUSCULAR HGB CONC 32.3 g/dL (31-35); MEAN CORPUSCULAR VOLUME 89.5 fL (81-99); MONOCYTES # (AUTO) 0.5 (0.2-0.8); MONOCYTES % 6.8 % (4.4-11.3); NEUTROPHILS # (AUTO) 5.8 (2.1-6.9); NEUTROPHILS % 73.4 % (38.7-80.0); PLATELET COUNT 245 x10e3/uL (140-360); RED BLOOD COUNT 5.54 x10e6/uL (4.3-5.7); RED CELL DISTRIBUTION WIDTH 14.9 % (11.7-14.4)
[2021-03-20 10:49] LABS: ALBUMIN 3.8 g/dL (3.5-5.0); ALBUMIN/GLOBULIN RATIO 1.6 (0.8-2.0); ANION GAP 13.2 mmol/L (8-16); CALCIUM 8.8 mg/dL (8.4-10.2); CREATININE, SERUM 0.81 mg/dL (0.72-1.25); POTASSIUM 4.2 mmol/L (3.5-5.1)
[2021-03-20] MEDS ORDERED: METOPROLOL TARTRATE INJ 1 MG/ML VIAL IV ONE (11:00)
[2021-03-20 11:33] LABS: INR 1.65; PROTHROMBIN TIME 20.8 seconds (11.9-14.5)
[2021-03-20] MEDS ORDERED: DILTIAZEM HCL 5 MG/ML 5 ML VIAL IV ONE (12:00)
[2021-03-20] MEDS ORDERED: SODIUM CHLORIDE 0.9% 500ML 500 ML ONE (12:19)
[2021-03-20] MEDS ORDERED: DILTIAZEM HCL 125 ML IV ONE (12:30)
[2021-03-20] MEDS ORDERED: ENOXAPARIN SODIUM INJ 100 MG/ML SYR SC ONE (13:00)
[2021-03-20] MEDS ORDERED: METOPROLOL TARTRATE 50 MG TAB PO ONE (13:00)
[2021-03-20] MEDS ORDERED: ONDANSETRON HCL INJ 2MG/ML 2ML 2 MG/ML VIAL IV PRN (15:15)
[2021-03-20] MEDS ORDERED: ZOLPIDEM TARTRATE 5 MG TAB PO PRN (16:00)
[2021-03-20] MEDS ORDERED: SODIUM CHLORIDE 0.9% 1000ML 1,000 ML IV SCH (16:00)
[2021-03-20] MEDS: DILTIAZEM HCL 125 ML IV SCH (16:06)
[2021-03-20] MEDS: PANTOPRAZOLE SOD 40 MG TABEC PO SCH (17:40)
[2021-03-20] MEDS: WARFARIN SOD 2.5 MG TAB PO SCH (17:40)
[2021-03-20] MEDS ORDERED: ENOXAPARIN 30 MG/0.3 ML SYR SC SCH (21:00)
[2021-03-21] VITALS (16 sets, daily range): BP systolic 100–119; BP diastolic 66–96
[2021-03-21] MEDS: ENOXAPARIN SODIUM INJ 100 MG/ML SYR SC SCH ×2 (00:59→12:42)
[2021-03-21 05:34] LABS: BASOPHILS # (AUTO) 0.1 (0.0-0.1); BASOPHILS % 1.1 % (0.0-1.0); EOSINOPHILS # (AUTO) 0.2 (0.0-0.4); EOSINOPHILS % 2.5 % (0.0-6.0); HEMATOCRIT 48.3 % (38.2-49.6); HEMOGLOBIN 15.6 g/dL (14.0-18.0); LYMPHOCYTES # (AUTO) 2.3 (1.0-3.2); LYMPHOCYTES % 35.8 % (18.0-39.1); MEAN CORPUSCULAR HEMOGLOBIN 28.8 pg (28-32); MEAN CORPUSCULAR HGB CONC 32.3 g/dL (31-35); MEAN CORPUSCULAR VOLUME 89.3 fL (81-99); MONOCYTES # (AUTO) 0.6 (0.2-0.8); MONOCYTES % 8.9 % (4.4-11.3); NEUTROPHILS # (AUTO) 3.2 (2.1-6.9); NEUTROPHILS % 50.6 % (38.7-80.0); PLATELET COUNT 224 x10e3/uL (140-360); RED BLOOD COUNT 5.41 x10e6/uL (4.3-5.7); RED CELL DISTRIBUTION WIDTH 15.1 % (11.7-14.4)
[2021-03-21 05:46] LABS: INR 2.42; PROTHROMBIN TIME 28.2 seconds (11.9-14.5)
[2021-03-21 06:03] LABS: CALCIUM 8.7 mg/dL (8.4-10.2); CREATININE, SERUM 0.77 mg/dL (0.72-1.25)
[2021-03-21] MEDS: DILTIAZEM HCL 125 ML IV SCH (09:06)
[2021-03-21] MEDS: PANTOPRAZOLE SOD 40 MG TABEC PO SCH (09:30)
[2021-03-21] MEDS: METOPROLOL SUCCINATE 50 MG TAB XL PO SCH (09:31)
[2021-03-21] MEDS ORDERED: METOPROLOL SUCCINATE 50 MG TAB XL PO NR (13:15)
[2021-03-21] MEDS: WARFARIN SOD 2.5 MG TAB PO SCH (16:02)
[2021-03-22] VITALS (25 sets, daily range): BP systolic 99–124; BP diastolic 62–98
[2021-03-22 04:57] LABS: BASOPHILS # (AUTO) 0.1 (0.0-0.1); BASOPHILS % 0.6 % (0.0-1.0); EOSINOPHILS # (AUTO) 0.2 (0.0-0.4); EOSINOPHILS % 1.9 % (0.0-6.0); HEMATOCRIT 48.8 % (38.2-49.6); HEMOGLOBIN 16.4 g/dL (14.0-18.0); LYMPHOCYTES # (AUTO) 1.9 (1.0-3.2); LYMPHOCYTES % 22.6 % (18.0-39.1); MEAN CORPUSCULAR HEMOGLOBIN 29.4 pg (28-32); MEAN CORPUSCULAR HGB CONC 33.6 g/dL (31-35); MEAN CORPUSCULAR VOLUME 87.6 fL (81-99); MONOCYTES # (AUTO) 0.8 (0.2-0.8); MONOCYTES % 9.1 % (4.4-11.3); NEUTROPHILS # (AUTO) 5.5 (2.1-6.9); NEUTROPHILS % 64.7 % (38.7-80.0); PLATELET COUNT 211 x10e3/uL (140-360); RED BLOOD COUNT 5.57 x10e6/uL (4.3-5.7); RED CELL DISTRIBUTION WIDTH 14.9 % (11.7-14.4)
[2021-03-22 05:06] LABS: INR 3.08; PARTIAL THROMBOPLASTIN TIME 38.8 seconds (23.8-35.5); PROTHROMBIN TIME 34.2 seconds (11.9-14.5)
[2021-03-22 05:24] LABS: ALBUMIN 3.4 g/dL (3.5-5.0); ALBUMIN/GLOBULIN RATIO 1.4 (0.8-2.0); ANION GAP 14.1 mmol/L (8-16); CALCIUM 8.3 mg/dL (8.4-10.2); CREATININE, SERUM 0.76 mg/dL (0.72-1.25); POTASSIUM 4.1 mmol/L (3.5-5.1)
[2021-03-22] MEDS: PANTOPRAZOLE SOD 40 MG TABEC PO SCH (07:29)
[2021-03-22] MEDS: METOPROLOL SUCCINATE 50 MG TAB XL PO SCH (07:29)
[2021-03-22] MEDS ORDERED: MIDAZOLAM HCL 2 MG/2 ML VIAL ONE ×2 (14:58→15:54)
[2021-03-22] MEDS ORDERED: FENTANYL CITRATE/PF 100MCG/2 ML INJ ONE ×2 (14:58→15:55)
[2021-03-22] MEDS ORDERED: BENZOCAINE 20% SPR 60 ML CAN ONE (14:58)
[2021-03-22] MEDS ORDERED: SODIUM CHLORIDE 0.9% 500ML 500 ML ONE (14:59)
[2021-03-22] MEDS: DILTIAZEM HCL 125 ML IV SCH (15:45)
[2021-03-22] MEDS ORDERED: WARFARIN SOD 2.5 MG TAB PO SCH (17:00)
[2021-03-23] VITALS (9 sets, daily range): BP systolic 101–111; BP diastolic 64–76
[2021-03-23 05:14] LABS: INR 2.55; PROTHROMBIN TIME 29.4 seconds (11.9-14.5)
[2021-03-23] MEDS: PANTOPRAZOLE SOD 40 MG TABEC PO SCH (09:02)
[2021-03-23] MEDS: METOPROLOL SUCCINATE 50 MG TAB XL PO SCH (09:05)
[2021-03-23] MEDS ORDERED: ONDANSETRON HCL 4 MG ORAL DISINTEGRATING TAB PO PRN (11:30)
== END 2021-03-23 12:28 | disposition home or self-care (01) | DRG 310 ==
LOC: ER 10:15 → ERHOLD 12:30 → ICU 14:40 → MED/SURG 03-23 05:44
PROVIDERS: ADMIT Internal Medicine; ATTEND Internal Medicine
PROC: B24BZZ4 Ultrasonography of Heart with Aorta, Transesophageal (ICD-10-PCS; principal; 2021-03-22)
PROC: 5A2204Z Restoration of Cardiac Rhythm, Single (ICD-10-PCS; 2021-03-22)
DX: I48.92 Unspecified atrial flutter (principal); I10 Essential (primary) hypertension; I48.91 Unspecified atrial fibrillation; I25.10 Atherosclerotic heart disease of native coronary artery without angina pectoris; K21.9 Gastro-esophageal reflux disease without esophagitis; K82.9 Disease of gallbladder, unspecified; R94.5 Abnormal results of liver function studies; Z88.4 Allergy status to anesthetic agent; Z95.2 Presence of prosthetic heart valve; Z20.822 Contact with and (suspected) exposure to COVID-19; Z95.5 Presence of coronary angioplasty implant and graft; Z79.01 Long term (current) use of anticoagulants
CPT/HCPCS: 36415; 71045; 76705; 80048; 80053; 82948; 83880; 84484; 85025; 85379; 85610; 85730; 92960; 93005; 93306; 93307; 93312; 93325; 99152; 99284; J1650; J2250; J3010; J7040; U0002